=== PATIENT | male | born 1970 | race Caucasian/White ===

== ENCOUNTER 2023-12-01 11:35 | Outpatient (CLI) | payer OTHER ==
[2023-12-01 12:51] LABS: #Basophils 0.04 10x3/uL (0.0-0.2); #Eosinphils 0.25 10x3/uL (0.0-0.5); #Monocytes 0.66 10x3/uL (0.0-1.1); #Neutrophils 4.23 10x3/uL (1.5-8.4); %Basophils 0.5 % (0.0-2.0); %Eosinophils 3.4 % (0.0-6.0); %Neutrophils 57.8 % (40.0-75.0); Hematocrit 52.1 % (38.8-50.0); Hemoglobin 18.2 g/dL (13.5-17.5); Mean Corpuscular HGB CONC 34.9 g/dL (32.0-36.0); Mean Corpuscular Volume 88.6 fL (81.2-95.1); Platelet Count 206 10x3/uL (150-450); Red Blood Cell (RBC) Count 5.88 10x6/uL (4.32-5.72); White Blood Cell (WBC) Count 7.3 10x3/uL (3.5-10.5)
[2023-12-01 13:06] LABS: Anion Gap 15 mmol/L (10-20); BUN (Urea Nitrogen) 16 mg/dL (8.4-25.7); Calc. Creatinine Clearance 0 mL/min (70-130); Calcium 9.5 mg/dL (7.8-10.44); Carbon Dioxide 23 mmol/L (22-29); Chloride 104 mmol/L (98-107); Estimated GFR 103; Glucose 88 mg/dL (70-105); Potassium 4.9 mmol/L (3.5-5.1); Sodium 137 mmol/L (136-145)
== END 2023-12-01 11:36 | disposition home or self-care (01) ==
LOC: LABBT 11:35
PROVIDERS: ATTEND Specialist
DX: Z01.812 Encounter for preprocedural laboratory examination (principal); R22.2 Localized swelling, mass and lump, trunk
CPT/HCPCS: 80048; 85025

== ENCOUNTER 2023-12-02 09:30 | Day surgery (SDC) | payer OTHER ==
[2023-12-01 12:07] VITALS: BMI 29.8
[2023-12-02] MEDS ORDERED: Acetaminophen 500 MG TAB ONE (10:02)
[2023-12-02] MEDS ORDERED: Ketorolac Tromethamine 30 MG (1 mL) VIAL ONE (10:02)
[2023-12-02] MEDS ORDERED: Bupivacaine 0.25% HCL 30 ML VIAL ONE (10:44)
[2023-12-02] MEDS ORDERED: EPINEPHrine 1 MG/ML VIAL ONE (10:44)
[2023-12-02] MEDS ORDERED: Ketamine In 0.9 % NaCl 50 MG/5 ML SYRINGE ONE (11:53)
[2023-12-02] MEDS ORDERED: PROPOFOL 40 ML ONE (11:53)
[2023-12-02] MEDS ORDERED: Sodium Chloride 0.9% 100 ML ONE (11:53)
[2023-12-02] MEDS ORDERED: Lidocaine 1% PF 5 ML VIAL ONE (11:53)
[2023-12-02] MEDS ORDERED: CEFAZOLIN 2 GM VIAL ONE (11:53)
[2023-12-02] MEDS ORDERED: Midazolam HCl 2 mg/2 ml Vial ONE (11:54)
[2023-12-02] MEDS ORDERED: Ondansetron PF 4 MG/2 ML Vial ONE (12:17)
[2023-12-02] MEDS ORDERED: HYDROcodone/Acetaminophen 5/325 mg Tablet ONE (13:57)
== END 2023-12-02 14:45 | disposition home or self-care (01) ==
LOC: SDC 09:30
PROVIDERS: ATTEND Specialist
PROC: 0JB60ZZ Excision of Chest Subcutaneous Tissue and Fascia, Open Approach (ICD-10-PCS; principal; 2023-12-02)
DX: M72.4 Pseudosarcomatous fibromatosis (principal); M61.9 Calcification and ossification of muscle, unspecified; D84.1 Defects in the complement system; T81.49XA Infection following a procedure, other surgical site, initial encounter; M17.11 Unilateral primary osteoarthritis, right knee; E78.00 Pure hypercholesterolemia, unspecified; I25.10 Atherosclerotic heart disease of native coronary artery without angina pectoris; I10 Essential (primary) hypertension; K21.9 Gastro-esophageal reflux disease without esophagitis
CPT/HCPCS: 88305; 88341; 88342; 88360; J0171; J0665; J1885; J2250; J2405; J2704; J3490